=== PATIENT | female | born 1970 | race Caucasian/White ===

== ENCOUNTER 2019-01-19 00:35 | Emergency (ER) | payer MEDICAID ==
[2019-01-19 00:49] VITALS: BP 145/88
--- NOTE | 2019-01-19 01:32 | EDM.PDOC ---
ED HPI GENERAL MEDICAL PROBLEM - General Chief Complaint: ENT Problem Stated Complaint: ABCESS ON ROOF OF MOUTH FROM TOOTH Time Seen by Provider: 01/19/19 00:50 Source of Information: Reports: Patient, Family (), RN Notes Reviewed History Limitations: Reports: No Limitations - History of Present Illness INITIAL COMMENTS - FREE TEXT/NARRATIVE: The patient states that she has had an abscess behind her left upper incisor for the past 2 weeks. She reports having oral drainage. No recent fever. She states that she has had oral abscesses in the past. She has not seen a dentist about this. The patient does not have a PCP. 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: Psychiatric History: Reports: Depression - Past Surgical History HEENT Surgical History: Reports: Other (See Below) (Facial reconstruction) GI Surgical History: Reports: Appendectomy Female Surgical History: Reports: Section (x 2) Social & Family History - Family History Family Medical History: Noncontributory - Tobacco Use Smoking Status *Q: Current Every Day Smoker Years of Tobacco use: 30 Packs/Tins Daily: 1 - Caffeine Use Caffeine Use: Reports: Coffee - Alcohol Use Alcohol Use History: Yes Alcohol Use Frequency: Socially - Recreational Drug Use Recreational Drug Use: Yes Drug Use in Last 12 Months: No Recreational Drug Type: Reports: Marijuana/Hashish (smoked in HS) - Living Situation & Occupation Living situation: Reports: Single, with Family (Son) 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 ED EXAM, ENT - Physical Exam Exam: See Below Exam Limited By: No Limitations General Appearance: Alert, WD/WN, No Apparent Distress Eye Exam: Bilateral Eye: EOMI, Normal Inspection Ears: Normal External Exam, Normal Canal, Hearing Grossly Normal, Normal TMs Nose: Normal Inspection, Normal Mucousa, No Blood Mouth/Throat: Normal Lips, Normal Oropharynx, Other (Tooth #1 absent. Tooth #2 with anterior ilya. Tooth #3 absent. Tooth #10 normal in appearance, but with tender swollen behind it. Teeth #12, 13, 14 with fillings. Tooth #14 with posterior ilya. Teeth #15, 16 absent. Teeth #17, 18 absent. Tooth #19 with extensive decay. Tooth #20 absent. Teeth #29, 30, 31, 32 absent.) Head: Atraumatic, Normocephalic Neck: Normal Inspection, Supple, Non-Tender, Full Range of Motion. No: Lymphadenopathy (L), Lymphadenopathy (R) ED I&D PROCEDURES - I&D Site: Behind tooth #10 Local anesthesia - Lidocaine (Xylocaine): 1% with EPI (50:50 admixture) Local Anesthesia - Bupivicaine (Marcaine): 0.5% Plain (50:50 admixture) Local Anesthetic Volume: 1cc Area Incised With: 11 Blade Drainage: No Drainage Probed to Break Up Loculations: No Complications: No Course - Vital Signs Last Recorded V/S: Last Vital Signs Temp 36.1 C 01/19/19 00:44 Pulse 87 01/19/19 00:44 Resp 18 01/19/19 00:44 BP 145/88 H 01/19/19 00:44 Pulse Ox 96 01/19/19 00:44 - Orders/Labs/Meds Meds: Medications Discontinued Medications Generic Name Dose Route Start Last Admin Trade Name Freq PRN Reason Stop Dose Admin Bupivacaine HCl 10 ml 01/19/19 01:29 01/19/19 01:34 Sensorcaine-Mpf 0.5% INJECT 01/19/19 01:30 10 ml ONETIME ONE Administration Lidocaine/Epinephrine 20 ml 01/19/19 01:29 01/19/19 01:34 Xylocaine 1% With Epinephrine 1:100,000 INJECT 01/19/19 01:30 20 ml ONETIME ONE Administration Penicillin V Potassium 500 mg 01/19/19 01:29 01/19/19 01:34 Veetids PO 01/19/19 01:30 500 mg ONETIME ONE Administration - Re-Assessments/Exams Free Text/Narrative Re-Assessment/Exam: 01/19/19 01:31 The patient appears to have an abscess behind tooth #10. She states that she has had a foul tasting oral drainage, indicating that it is already draining on its own, nevertheless, she would like me to open it up further. 01/19/19 01:47 The area around the swelling behind tooth #10 was infiltrated with a 50:50 admixture of lidocaine 1% with epinephrine and bupivacaine 0.5% without epinephrine. There was good blanching and subsequent anesthesia to the area. The area of swelling was then incised using a #11 scalpel, however, other than a small amount of blood, there was no purulent drainage. The patient will be started on penicillin, and I will send a 10-day prescription. The patient will be given a list of local dentists. Departure - Departure Time of Disposition: 01:49 Disposition: Home, Self-Care 01 Condition: Good Clinical Impression: Dental infection - Discharge Information *PRESCRIPTION DRUG MONITORING PROGRAM REVIEWED*: Not Applicable *COPY OF PRESCRIPTION DRUG MONITORING REPORT IN PATIENT RISHI: Not Applicable Prescriptions: Penicillin V Potassium 1 tab PO Q6HR #40 tab Instructions: Dental Abscess, [id number] Referrals: PCP,None [Primary Care Provider] - Forms: ED Department Discharge Additional Instructions: You were seen in the emergency room for a painful swelling behind your upper left incisor. An attempt was made to drain the swelling, however, no pus came out. You have been started on the antibiotic penicillin. A prescription for penicillin has been sent to the [facility], located just south and across [address] from [facility]. Take one tablet of penicillin every 6 hours, as prescribed. Finish the entire prescription unless told otherwise by a dentist. Take [id number] ibuprofen, to 3 tablets (400-600 mg) every 8 hours, OR [id number] Aleve, one tablet (220 mg) every 12 hours, with food, as needed for discomfort. A list of local dentists has been provided to you. It is imperative that you follow-up with a dentist within the next 10 days. If any other problems, please do not hesitate to return to the ER.
[2019-01-19] MEDS: Bupivacaine 0.5% 10 ML SDV INJECT ONE (01:34)
[2019-01-19] MEDS: Penicillin V Potassium 500 MG Tab PO ONE (01:34)
[2019-01-19] MEDS: Lidocaine 1% with EPINEPHrine 1:100,000 20 ML MDV INJECT ONE (01:34)
== END 2019-01-19 02:00 | disposition home or self-care (01) ==
LOC: JD.ED 00:35
DX: K04.7 Periapical abscess without sinus (principal); F17.210 Nicotine dependence, cigarettes, uncomplicated; Z79.899 Other long term (current) drug therapy
CPT/HCPCS: 10060; 41800; 64450; 99282-25; 99283; A9270-GY; J3490